=== PATIENT | female | born 1985 | race African-American/Black ===

== ENCOUNTER → 2016-10-03 | Outpatient (CLI) | payer OTHER ==
[~2016-10-03] MED LIST: CYCL1TAB29 PO; DICY10 PO; MOBI15TA PO; SLEEPING PILL; TRAM50TA PO; ULTR50TA5 PO
--- NOTE | 2016-10-03 12:39 | EKG ---
Date Performed: 10/03/2016 Time Performed: 10:42:09 PTAGE: 30 years EKG: Sinus rhythm NORMAL ECG Compared to prior tracing no significant change PREVIOUS TRACING : 12/25/2010 18.41 DOCTOR: Jamal Landa Interpretating Date/Time 10/03/2016 12:35:27
== END ==
LOC: HECH 10:31
DX: Z71.3 Dietary counseling and surveillance (principal)
CPT/HCPCS: 93005

== ENCOUNTER 2017-01-04 00:18 | Emergency (ER) | payer OTHER ==
[~2017-01-04] VITALS: Ht 165.1 cm; Wt 132.0 kg
[~2017-01-04 00:18] MED LIST changes: -DICY10 PO; -SLEEPING PILL; -TRAM50TA PO
[2017-01-04 00:21] VITALS: BP 135/70; PULSE 102; RESP 16; TEMP 98; O2SAT 98
[2017-01-04] MEDS ORDERED: SLEEPING PILL (00:26)
[2017-01-04] MEDS ORDERED: TRAM50TA PO (00:26)
--- NOTE | 2017-01-04 01:59 | PD ---
HPI Chief Complaint: Abdominal Pain Time Seen by Provider: 01:36 Travel History International Travel<30 days: No Contact w/Intl Traveler<30days: No Traveled to known affect area: No History of Present Illness HPI The patient is a 31-year-old after Citizen Of The [place] female who presents emergency department for abdominal pain. Patient is a 24 hour history of intermittent left lower quadrant crampy abdominal pain that is nonradiating. The patient has been urinating frequently, however, states she's been drinking significant amount of water. She has had a history of similar symptoms in past secondary to UTI. The patient denies any vaginal discharge or bleeding. Patient is sexually active, one partner, denies any history of STI. The patient's last menstrual cycle was 2 weeks ago, she denies . The patient denies any associated nausea, vomiting, constipation, or change in bowel habits. She denies any associated fever, chills, or sweats. PFSH Past Medical History Anemia: Yes Diminished Hearing: No Gastrointestinal Disorders: Yes Headaches: Yes Musculoskeletal: Yes (CHRONIC BACK PAIN) Immunizations Current: Yes Migraines: Yes Tetanus Vaccination: Never Vaccinated Influenza Vaccination: No ?: Unknown LMP: 2 WEEKS AGO : 0 Para: 0 Miscarriage: 0 : 0 Past Surgical History Surgical History: No Previous Surgery Social History Alcohol Use: Yes Tobacco Use: No Substance Use: No Allergies-Medications (Allergen,Severity, Reaction): Coded Allergies: No Known Allergies (Verified , 01/04/17) Reported Meds & Prescriptions Reported Meds & Active Scripts Active Reported [Sleeping Pill] Tramadol (Tramadol HCl) 50 Mg Tab 50 Mg PO Q4H PRN Review of Systems Except as stated in HPI: all other systems reviewed are Neg General / Constitutional: No: Fever HENT: No: Lightheadedness Cardiovascular: No: Chest Pain or Discomfort Respiratory: No: Shortness of Breath Gastrointestinal: Positive: Abdominal Pain, No: Nausea, Vomiting, Diarrhea Genitourinary: Positive: Frequency, Pelvic Pain, No: Urgency, Dysuria, Hematuria, Discharge, Vaginal Bleeding Physical Exam Narrative GENERAL: Awake, alert, pleasant 31-year-old female who appears her stated age and is in no acute respiratory distress. SKIN: Focused skin assessment warm/dry. HEAD: Atraumatic. Normocephalic. EYES: No injection or drainage. ENT: No nasal bleeding or discharge. Mucous membranes pink and moist. NECK: Trachea midline. No JVD. CARDIOVASCULAR: Regular rate and rhythm. No murmur appreciated. RESPIRATORY: No accessory muscle use. Clear to auscultation. Breath sounds equal bilaterally. GASTROINTESTINAL: Abdomen soft, obese, minimal tenderness in the suprapubic and left lower quadrant. No rebound tenderness, guarding, or rigidity. MUSCULOSKELETAL: No obvious deformities. No clubbing. No cyanosis. No edema. NEUROLOGICAL: Awake and alert. No obvious cranial nerve deficits. Motor grossly within normal limits. Normal speech. PSYCHIATRIC: Appropriate mood and affect; insight and judgment normal. Data Data Last Documented VS Vital Signs Date Time Temp Pulse Resp B/P Pulse Ox O2 Delivery O2 Flow Rate FiO2 01/04/17 02:00 16 99 Room Air 01/04/17 00:21 98.0 102 135/70 Orders Complete Blood Count With Diff (01/04/17 01:53) Comprehensive Metabolic Panel (01/04/17 01:53) Lipase (01/04/17 01:53) Urinalysis - C+S If Indicated (01/04/17 01:53) Iv Access Insert/Monitor (01/04/17 01:53) Ecg Monitoring (01/04/17 01:53) Oximetry (01/04/17 01:53) Sodium Chloride 0.9% Flush (Ns Flush) (01/04/17 02:00) Ed Urine Pregnancytest Poc (01/04/17 01:53) Ct Abd/Pel W/O Iv Contrast (01/04/17 ) Labs Laboratory Tests Test 01/04/17 01/04/17 01:50 02:00 Urine Color YELLOW Urine Turbidity CLEAR Urine pH 6.5 Urine Specific [place] 1.026 Urine Protein TRACE mg/dL Urine Glucose (UA) NEG mg/dL Urine Ketones NEG mg/dL Urine Occult Blood NEG Urine Nitrite NEG Urine Bilirubin NEG Urine Urobilinogen 2.0 MG/DL Urine Leukocyte Esterase SMALL Urine RBC LESS THAN 1 /hpf Urine WBC 2 /hpf Urine Squamous Epithelial 3 /hpf Cells Urine Transitional Epithelial <1 /hpf Cells Urine Renal Epithelial Cells <1 /hpf Urine Bacteria RARE /hpf Urine Mucus MANY /lpf Microscopic Urinalysis Comment CULT NOT INDICATED White Blood Count 11.5 TH/MM3 Red Blood Count 4.22 MIL/MM3 Hemoglobin 9.8 GM/DL Hematocrit 32.3 % Mean Corpuscular Volume 76.5 FL Mean Corpuscular Hemoglobin 23.2 PG Mean Corpuscular Hemoglobin 30.3 % Concent Red Cell Distribution Width 16.5 % Platelet Count 357 TH/MM3 Mean Platelet Volume 7.4 FL Neutrophils (%) (Auto) 60.4 % Lymphocytes (%) (Auto) 31.8 % Monocytes (%) (Auto) 6.2 % Eosinophils (%) (Auto) 1.0 % Basophils (%) (Auto) 0.6 % Neutrophils # (Auto) 6.9 TH/MM3 Lymphocytes # (Auto) 3.7 TH/MM3 Monocytes # (Auto) 0.7 TH/MM3 Eosinophils # (Auto) 0.1 TH/MM3 Basophils # (Auto) 0.1 TH/MM3 CBC Comment DIFF FINAL Differential Comment Sodium Level 141 MEQ/L Potassium Level 3.7 MEQ/L Chloride Level 104 MEQ/L Carbon Dioxide Level 30.5 MEQ/L Anion Gap 7 MEQ/L Blood Urea Nitrogen 9 MG/DL Creatinine 0.66 MG/DL Estimat Glomerular Filtration 126 ML/MIN Rate Random Glucose 83 MG/DL Calcium Level 8.6 MG/DL Total Bilirubin 0.1 MG/DL Aspartate Amino Transf 17 U/L (AST/SGOT) Alanine Aminotransferase 23 U/L (ALT/SGPT) Alkaline Phosphatase 80 U/L Total Protein 8.0 GM/DL Albumin 3.5 GM/DL Lipase 85 U/L [facility] Medical Decision Making Medical Screen Exam Complete: Yes Emergency Medical Condition: Yes Medical Record Reviewed: Yes Interpretation(s) CT of the abdomen and pelvis reveals no acute CT findings. Laboratory Tests Test 01/04/17 01/04/17 01:50 02:00 Urine Color YELLOW Urine Turbidity CLEAR Urine pH 6.5 Urine Specific [place] 1.026 Urine Protein TRACE mg/dL Urine Glucose (UA) NEG mg/dL Urine Ketones NEG mg/dL Urine Occult Blood NEG Urine Nitrite NEG Urine Bilirubin NEG Urine Urobilinogen 2.0 MG/DL Urine Leukocyte Esterase SMALL Urine RBC LESS THAN 1 /hpf Urine WBC 2 /hpf Urine Squamous Epithelial 3 /hpf Cells Urine Transitional Epithelial <1 /hpf Cells Urine Renal Epithelial Cells <1 /hpf Urine Bacteria RARE /hpf Urine Mucus MANY /lpf Microscopic Urinalysis Comment CULT NOT INDICATED White Blood Count 11.5 TH/MM3 Red Blood Count 4.22 MIL/MM3 Hemoglobin 9.8 GM/DL Hematocrit 32.3 % Mean Corpuscular Volume 76.5 FL Mean Corpuscular Hemoglobin 23.2 PG Mean Corpuscular Hemoglobin 30.3 % Concent Red Cell Distribution Width 16.5 % Platelet Count 357 TH/MM3 Mean Platelet Volume 7.4 FL Neutrophils (%) (Auto) 60.4 % Lymphocytes (%) (Auto) 31.8 % Monocytes (%) (Auto) 6.2 % Eosinophils (%) (Auto) 1.0 % Basophils (%) (Auto) 0.6 % Neutrophils # (Auto) 6.9 TH/MM3 Lymphocytes # (Auto) 3.7 TH/MM3 Monocytes # (Auto) 0.7 TH/MM3 Eosinophils # (Auto) 0.1 TH/MM3 Basophils # (Auto) 0.1 TH/MM3 CBC Comment DIFF FINAL Differential Comment Sodium Level 141 MEQ/L Potassium Level 3.7 MEQ/L Chloride Level 104 MEQ/L Carbon Dioxide Level 30.5 MEQ/L Anion Gap 7 MEQ/L Blood Urea Nitrogen 9 MG/DL Creatinine 0.66 MG/DL Estimat Glomerular Filtration 126 ML/MIN Rate Random Glucose 83 MG/DL Calcium Level 8.6 MG/DL Total Bilirubin 0.1 MG/DL Aspartate Amino Transf 17 U/L (AST/SGOT) Alanine Aminotransferase 23 U/L (ALT/SGPT) Alkaline Phosphatase 80 U/L Total Protein 8.0 GM/DL Albumin 3.5 GM/DL Lipase 85 U/L Differential Diagnosis Differential diagnosis includes UTI, ovarian cyst, ovarian torsion, nephrolithiasis, pyelonephritis, diverticulitis, cervicitis, PID, ectopic . Narrative Course IV was established, labs are drawn and sent, and the patient was placed on cardiac telemetry monitoring and continuous pulse oximetry monitoring. Bedside UA test was obtained, negative, and UA was sent to lab. The patient' s white count was minimally elevated greater than 11, LFTs and lipase are unremarkable. UA is negative. Patient's initial heart rate was 102, with elevated white count, therefore, CT the abdomen and pelvis was performed. CT was negative. Patient will be discharged home on Bentyl, is advised to follow- up with her primary physician, diet as tolerated, and return if symptoms worsen or progress. Diagnosis Primary Impression: Abdominal pain Qualified Code: R10.32 - Left lower quadrant pain Patient Instructions: General Instructions Additional Instructions: Bentyl as needed. Diet as tolerated. Follow-up with your primary physician. Please provide the patient a copy of her CT results and lab results at discharge. Med/Other Pt SpecificInfo: Prescription(s) given Scripts Dicyclomine (Bentyl)10 Mg Cap10 Mg PO QID #20 CAP Ref 0 Prov:Elton Snowden MD 01/04/17 Disposition: 01 DISCHARGE HOME Condition: Stable Elton Snowden MD January 04, 2017 01:58
[2017-01-04 02:00] VITALS: RESP 16; O2SAT 99
[2017-01-04] MEDS ORDERED: SODIUM CHLORIDE 0.9% FLUSH 10 ML FLUSH IV FLUSH PRN (02:00)
[2017-01-04 02:11] LABS: BACTERIA, URINE RARE /hpf; BLOOD, URINE NEG (NEG); COMMENT (UR) CULT NOT INDICATED; CULTURE IF INDICATED CULT NOT INDICATED; GLUCOSE,URINE NEG (NEG); KETONE, URINE NEG (NEG); MUCUS URINE MANY /lpf (OCC); NITRITE,URINE NEG (NEG); PH, URINE 6.5 (5.0-8.5); RENAL EPITHELIAL CELLS <1 /hpf; SQUAMOUS EPITHELIAL CELL URINE 3 /hpf (0-5); TRANSITIONAL EPI CELLS, URINE <1 /hpf; URINE COLOR YELLOW (YELLW/STRAW)
[2017-01-04 02:16] LABS: AUTOMATED NEUTROPHIL # 6.9 TH/MM3 (1.8-7.7); BASOPHIL # 0.1 TH/MM3 (0-0.2); BASOPHIL % 0.6 % (0.0-2.0); EOSINOPHIL # 0.1 TH/MM3 (0-0.4); HEMATOCRIT 32.3 % (35.0-46.0); HEMO FLAGS DIFF FINAL; LYMPH % 31.8 % (9.0-44.0); LYMPHOCYTE # 3.7 TH/MM3 (1.0-4.8); MEAN CELL VOLUME 76.5 FL (80.0-100.0); MEAN CORPUSCULAR HEMOGLOBIN 23.2 PG (27.0-34.0); MEAN CORPUSCULAR HGB CONC 30.3 % (32.0-36.0); MONO % 6.2 % (0.0-8.0); NEUT % 60.4 % (16.0-70.0); PLATELET COUNT 357 TH/MM3 (150-450); RED BLOOD COUNT 4.22 MIL/MM3 (4.00-5.30); RED CELL DISTRIBUTION WIDTH 16.5 % (11.6-17.2); WHITE BLOOD COUNT 11.5 TH/MM3 (4.0-11.0)
[2017-01-04 02:29] LABS: ALT (GPT) 23 U/L (10-53); ANION GAP 7 MEQ/L (5-15); AST (GOT) 17 U/L (15-37); BICARBONATE 30.5 MEQ/L (21.0-32.0); BLOOD UREA NITROGEN 9 MG/DL (7-18); CHLORIDE 104 MEQ/L (98-107); GLOMERULAR FILTRATION RATE 126 ML/MIN (>89); POTASSIUM 3.7 MEQ/L (3.5-5.1); SODIUM (NA) 141 MEQ/L (136-145)
[2017-01-04 02:31] LABS: ALKALINE PHOSPHATASE 80 U/L (45-117); TOTAL BILIRUBIN ADULT 0.1 MG/DL (0.2-1.0)
[2017-01-04] MEDS ORDERED: DICY10 PO (03:31)
--- NOTE | 2017-01-04 08:26 | RADRPT ---
EXAM DATE/TIME: 01/04/2017 03:02 [facility] COMPARISON: No previous studies available for comparison. INDICATIONS : Left lower quadrant pain. ORAL CONTRAST: No oral contrast ingested. RADIATION DOSE: 16.99 CTDIvol (mGy) MEDICAL HISTORY : None SURGICAL HISTORY : None. ENCOUNTER: Initial ACUITY: 1 day PAIN SCALE: 5/10 LOCATION: Left lower quadrant TECHNIQUE: Volumetric scanning of the abdomen and pelvis was performed. Using automated exposure control and ad justment of the mA and/or kV according to patient size, radiation dose was kept as low as reasonably achievable to obtain optimal diagnostic quality images. FINDINGS: LOWER LUNGS: The visualized lower lungs are clear. LIVER: Homogeneous density without lesion. There is no dilation of the biliary tree. No calcified gallston es. SPLEEN: Normal size without lesion. PANCREAS: Within normal limits. KIDNEYS: Normal in size and shape. There is no mass, stone, or hydronephrosis. ADRENAL GLANDS: Within normal limits. VASCULAR: There is no aortic aneurysm. BOWEL/MESENTERY: The stomach, small bowel, and colon demonstrate no acute abnormality. There is no free intraperitone al air or fluid. ABDOMINAL WALL: Within normal limits. RETROPERITONEUM: There is no lymphadenopathy. BLADDER: No wall thickening or mass. REPRODUCTIVE: Within normal limits. INGUINAL: There is no lymphadenopathy or hernia. MUSCULOSKELETAL: Within normal limits for patient age. CONCLUSION: No acute CT findings in the abdomen or pelvis. Mani Franco MD on January 04, 2017 at 3:11 Board Certified Radiologist. This report was verified electronically.
== END 2017-01-04 04:20 | disposition home or self-care (01) ==
LOC: NEPC 00:18
DX: R10.32 Left lower quadrant pain (principal)
CPT/HCPCS: 74176; 80053; 81001; 83690; 84703; 85025

== ENCOUNTER 2017-06-15 15:46 | Emergency (ER) | payer OTHER ==
[~2017-06-15] VITALS: Ht 165.1 cm; Wt 132.0 kg
[~2017-06-15 15:46] MED LIST changes: -CYCL1TAB29 PO; +DICY10 PO; -MOBI15TA PO; +SLEEPING PILL; +TRAM50TA PO; -ULTR50TA5 PO
[2017-06-15 15:47] VITALS: BP 135/75; PULSE 87; RESP 12; TEMP 97.9; O2SAT 98
[2017-06-15] MEDS ORDERED: IBUPROFEN 800 MG TAB PO ONE (16:30)
[2017-06-15] MEDS ORDERED: ONDANSETRON ODT 4 MG TAB PO ONE (16:30)
--- NOTE | 2017-06-15 18:47 | PD ---
HPI Chief Complaint: Abdominal Pain Time Seen by Provider: 18:43 Travel History International Travel<30 days: No Contact w/Intl Traveler<30days: No History of Present Illness HPI 31-year-old female presents to the ED for evaluation of 2 day history of crampy , 10 out of 10 lower abdominal pain. She states the pain radiates to her back and buttocks. Patient states this pain is similar to previous episodes of dysmenorrhea. She endorses mild nausea. She denies fevers, chills, vomiting, changes in bowel habits, dysuria, vaginal discharge. She denies risk of . She states that she takes oral contraception in order to control her symptoms "but I think my body got used to it because I'm really hurting today." She states that she treated with 400 mg ibuprofen ~1 PM with no improvement of symptoms. PFSH Past Medical History Anemia: Yes Diminished Hearing: No Gastrointestinal Disorders: Yes Headaches: Yes Musculoskeletal: Yes (CHRONIC BACK PAIN) Immunizations Current: Yes Migraines: Yes LMP: now : 0 Para: 0 Miscarriage: 0 : 0 Social History Alcohol Use: Yes Tobacco Use: No Substance Use: No Allergies-Medications (Allergen,Severity, Reaction): Coded Allergies: No Known Allergies (Verified , 01/04/17) Reported Meds & Prescriptions Reported Meds & Active Scripts Active Ibuprofen 800 Mg Tab 800 Mg PO Q8H PRN Reported Miralax Powder (Polyethylene Glycol 3350 Powder) 17 Gm Powd 17 Gm PO DAILY PRN Mix and dissolve one measuring cap-ful (17 grams) in water or juice. [Sleeping Pill] Tramadol (Tramadol HCl) 50 Mg Tab 50 Mg PO Q4H PRN Review of Systems Except as stated in HPI: all other systems reviewed are Neg Physical Exam Narrative GENERAL: Obese black female in no acute distress. SKIN: Focused skin assessment warm/dry. HEAD: Normocephalic. EYES: No scleral icterus. No injection or drainage. NECK: Supple, trachea midline. No JVD or lymphadenopathy. CARDIOVASCULAR: Regular rate and rhythm without murmurs, gallops, or rubs. RESPIRATORY: Breath sounds equal bilaterally. No accessory muscle use. GASTROINTESTINAL: Abdomen protuberant, soft, non-tender, nondistended. Active bowel sounds. MUSCULOSKELETAL: No cyanosis, or edema. BACK: Nontender without obvious deformity. No CVA tenderness. Data Data Last Documented VS Vital Signs Date Time Temp Pulse Resp B/P (MAP) Pulse Ox O2 Delivery O2 Flow Rate FiO2 06/15/17 21:11 80 16 130/75 (93) 98 06/15/17 15:47 97.9 Orders Orders Ibuprofen (Motrin) (06/15/17 16:30) Ondansetron Odt (Zofran Odt) (06/15/17 16:30) Urinalysis - C+S If Indicated (06/15/17 18:35) Ed Urine Pregnancytest Poc (06/15/17 18:35) Acetamin-Hydrocod 325-5 Mg ([place] 5-325 (06/15/17 21:00) Ed Discharge Order (06/15/17 21:03) Labs Laboratory Tests Test 06/15/17 19:40 Urine Color YELLOW Urine Turbidity CLEAR Urine pH 6.5 Urine Specific [place] 1.029 Urine Protein 30 mg/dL Urine Glucose (UA) NEG mg/dL Urine Ketones NEG mg/dL Urine Occult Blood MOD Urine Nitrite NEG Urine Bilirubin NEG Urine Urobilinogen LESS THAN 2.0 MG/DL Urine Leukocyte Esterase NEG Urine RBC /hpf Urine WBC 5 /hpf Urine Squamous Epithelial Cells 2 /hpf Urine Amorphous Sediment RARE Urine Mucus FEW /lpf Microscopic Urinalysis Comment CULT NOT INDICATED MDM Medical Decision Making Medical Screen Exam Complete: Yes Emergency Medical Condition: Yes Differential Diagnosis Dysmenorrhea versus UTI versus versus other Narrative Course 31-year-old female presents to the ED for evaluation of 2 day history of crampy , 10 out of 10 lower abdominal pain. She states the pain radiates to her back and buttocks. Patient states this pain is similar to previous episodes of dysmenorrhea. She endorses mild nausea. She denies fevers, chills, vomiting, changes in bowel habits, dysuria, vaginal discharge, risk of . She uses OC. Vitals reviewed. Physical exam reveals an obese black female in no acute distress. Abdominal exam unremarkable. No CVA tenderness. Patient was administered 800 mg ibuprofen by mouth and 4 mg Zofran sublingual. Urine test negative. No culture indicated of the UA. On recheck the patient states that her pain is only slightly diminished. She is administered 5 mg Lortab. She is instructed to treat symptomatically and follow up with her door closer mechanic. She is prescribed a short course of anti-inflammatory medications. She indicated understanding of instructions and is agreeable to the care plan. She is stable and discharged home. Diagnosis Primary Impression: Crampy pain associated with menses Referrals: Car Audio Installer Patient Instructions: Dysmenorrhea (ED), General Instructions Additional Instructions: Rest, hydrate. Return to normal, gentle activity as tolerated. Warm compresses held over the lower abdomen may help to improve your symptoms. Take pain medications as prescribed. Follow-up with your door closer mechanic. Return to the ED for any urgent or emergent medical condition. Med/Other Pt SpecificInfo: Prescription(s) given Scripts Ibuprofen (Ibuprofen) 800 Mg Tab 800 MG PO Q8H Y for Pain/Inflammation, #15 TAB 0 Refills Prov: Carlos Sidhu MD 06/15/17 Disposition: 01 DISCHARGE HOME Condition: Stable Danya Chang Jun 15, 2017 18:47
[2017-06-15] MEDS ORDERED: MIRA3350 PO (19:27)
[2017-06-15 20:54] LABS: BLOOD, URINE MOD (NEG); COMMENT (UR) CULT NOT INDICATED; CULTURE IF INDICATED CULT NOT INDICATED; GLUCOSE,URINE NEG (NEG); KETONE, URINE NEG (NEG); MUCUS URINE FEW /lpf (OCC); NITRITE,URINE NEG (NEG); PH, URINE 6.5 (5.0-8.5); SQUAMOUS EPITHELIAL CELL URINE 2 /hpf (0-5); URINE COLOR YELLOW (YELLW/STRAW)
[2017-06-15] MEDS ORDERED: ACETAMINOPHEN/HYDROcodone 325 MG/5 MG TAB PO ONE (21:00)
[2017-06-15] MEDS ORDERED: IBUP1TAB7 PO (21:03)
[2017-06-15 21:11] VITALS: BP 130/75
== END 2017-06-15 21:14 | disposition home or self-care (01) ==
LOC: NEPC 15:46
DX: N94.6 Dysmenorrhea, unspecified (principal)
CPT/HCPCS: 81001; 84703; 99283

== ENCOUNTER 2017-08-03 14:15 | Emergency (ER) | payer OTHER ==
[~2017-08-03 14:15] MED LIST changes: -DICY10 PO; +IBUP1TAB7 PO; +MIRA3350 PO
[2017-08-03 14:17] VITALS: BP 134/81; PULSE 80; RESP 14; TEMP 98.7; O2SAT 99
[2017-08-03 15:32] LABS: AUTOMATED NEUTROPHIL # 6.9 TH/MM3 (1.8-7.7); BASOPHIL # 0.1 TH/MM3 (0-0.2); BASOPHIL % 0.8 % (0.0-2.0); EOSINOPHIL # 0.1 TH/MM3 (0-0.4); EOSINOPHIL % 0.7 % (0.0-4.0); HEMATOCRIT 32.5 % (35.0-46.0); LYMPH % 20.3 % (9.0-44.0); LYMPHOCYTE # 1.9 TH/MM3 (1.0-4.8); MEAN CELL VOLUME 73.2 FL (80.0-100.0); MEAN CORPUSCULAR HEMOGLOBIN 22.5 PG (27.0-34.0); MEAN CORPUSCULAR HGB CONC 30.7 % (32.0-36.0); MEAN PLATELET VOLUME 7.6 FL (7.0-11.0); MONO % 5.7 % (0.0-8.0); MONOCYTE # 0.5 TH/MM3 (0-0.9); NEUT % 72.5 % (16.0-70.0); PLATELET COUNT 423 TH/MM3 (150-450); RED BLOOD COUNT 4.45 MIL/MM3 (4.00-5.30); RED CELL DISTRIBUTION WIDTH 17.8 % (11.6-17.2); WHITE BLOOD COUNT 9.5 TH/MM3 (4.0-11.0)
[2017-08-03 15:53] LABS: ALBUMIN 3.3 GM/DL (3.4-5.0); AST (GOT) 16 U/L (15-37); BICARBONATE 22.4 MEQ/L (21.0-32.0); BLOOD UREA NITROGEN 6 MG/DL (7-18); CALCIUM 9.2 MG/DL (8.5-10.1); CHLORIDE 108 MEQ/L (98-107); CREATININE 0.65 MG/DL (0.50-1.00); GLOMERULAR FILTRATION RATE 128 ML/MIN (>89); GLUCOSE,RANDOM 106 MG/DL (74-106); MAGNESIUM 2.2 MG/DL (1.5-2.5); SODIUM (NA) 141 MEQ/L (136-145)
[2017-08-03 15:57] LABS: ALKALINE PHOSPHATASE 62 U/L (45-117); ALT (GPT) 16 U/L (10-53); TOTAL BILIRUBIN ADULT 0.1 MG/DL (0.2-1.0); TOTAL PROTEIN 8.4 GM/DL (6.4-8.2)
--- NOTE | 2017-08-03 15:57 | RADRPT ---
EXAM DATE/TIME: 08/03/2017 15:44 [facility] COMPARISON: No previous studies available for comparison. INDICATIONS : Dizziness and headache for one day. RADIATION DOSE: 30.94 CTDIvol (mGy) MEDICAL HISTORY : Non-responsive. Migraines, Anemia, Chronic back pain. SURGICAL HISTORY : None. ENCOUNTER: Initial ACUITY: 1 day PAIN SCALE: 4/10 LOCATION: Bilateral cranial TECHNIQUE: Multiple contiguous axial images were obtained of the head. Using automated exposure control and adj ustment of the mA and/or kV according to patient size, radiation dose was kept as low as reasonably a chievable to obtain optimal diagnostic quality images. DICOM format image data is available electro nically for review and comparison. FINDINGS: CEREBRUM: The ventricles are normal for age. No evidence of midline shift, mass lesion, hemorrhage or acute in farction. No extra-axial fluid collections are seen. POSTERIOR FOSSA: The cerebellum and brainstem are intact. The 4th ventricle is midline. The cerebellopontine angle i s unremarkable. EXTRACRANIAL: The visualized portion of the orbits is intact. SKULL: The calvaria is intact. No evidence of skull fracture. CONCLUSION: Normal examination for a patient of this age. Adonay Gonzalez MD on August 03, 2017 at 15:55 Board Certified Radiologist. This report was verified electronically.
--- NOTE | 2017-08-03 16:05 | PD ---
HPI Chief Complaint: Dizziness Time Seen by Provider: 16:05 Travel History International Travel<30 days: No Contact w/Intl Traveler<30days: No Traveled to known affect area: No History of Present Illness HPI 31-year-old female came to the emergency room for sudden onset dizziness since 1 PM today. Patient specifically describes the dizziness as a feeling of lightheadedness. She felt like she was going to pass out but didn't quite pass out. She was on her way to work but then decided to come to the emergency room. Patient says that she has history of migraine but this time there is no headache. No history of nausea vomiting. Upon asking she said there was no chance she could be since she has not had sex in a very long time. Vital signs are stable. Patient says that she has medical condition and takes medications but does not remember their names. She had blood test and CT scan done in triage that was completed by the time she came into the ER. PFSH Past Medical History Narrative Medical List of her past medical, surgical, social and family history is reviewed from the nursing note. Anemia: Yes Diminished Hearing: No Gastrointestinal Disorders: Yes Headaches: Yes Musculoskeletal: Yes (CHRONIC BACK PAIN) Immunizations Current: Yes Migraines: Yes ?: Not LMP: 07/13/17 : 0 Para: 0 Miscarriage: 0 : 0 Social History Alcohol Use: No Tobacco Use: No Substance Use: No Allergies-Medications (Allergen,Severity, Reaction): Coded Allergies: No Known Allergies (Verified Adverse Reaction, Unknown, 08/03/17) Comments No known drug allergies. Reported Meds & Prescriptions Reported Meds & Active Scripts Active Meclizine (Meclizine HCl) 25 Mg Tab 25 Mg PO TID PRN Ibuprofen 800 Mg Tab 800 Mg PO Q8H PRN Reported Miralax Powder (Polyethylene Glycol 3350 Powder) 17 Gm Powd 17 Gm PO DAILY PRN Mix and dissolve one measuring cap-ful (17 grams) in water or juice. [Sleeping Pill] Tramadol (Tramadol HCl) 50 Mg Tab 50 Mg PO Q4H PRN Narrative Medication List of her home medications reviewed from the nursing note. Review of Systems Except as stated in HPI: all other systems reviewed are Neg Physical Exam Narrative GENERAL: Awake, alert, morbidly obese, no obvious distress SKIN: Focused skin assessment warm/dry. HEAD: Atraumatic. Normocephalic. EYES: Pupils equal and round. No scleral icterus. No injection or drainage. ENT: No nasal bleeding or discharge. Mucous membranes pink and moist. NECK: Trachea midline. No JVD. CARDIOVASCULAR: Regular rate and rhythm. No murmur appreciated. RESPIRATORY: No accessory muscle use. Clear to auscultation. Breath sounds equal bilaterally. GASTROINTESTINAL: Abdomen soft, non-tender, nondistended. Hepatic and splenic margins not palpable. MUSCULOSKELETAL: No obvious deformities. No clubbing. No cyanosis. No edema. NEUROLOGICAL: Awake and alert. No obvious cranial nerve deficits. Motor grossly within normal limits. Normal speech. PSYCHIATRIC: Appropriate mood and affect; insight and judgment normal. Data Data Last Documented VS Vital Signs Date Time Temp Pulse Resp B/P (MAP) Pulse Ox O2 Delivery O2 Flow Rate FiO2 08/03/17 17:37 78 18 123/74 (90) 98 08/03/17 14:17 98.7 Orders Orders Complete Blood Count With Diff (08/03/17 14:49) Comprehensive Metabolic Panel (08/03/17 14:49) Magnesium (Mg) (08/03/17 14:49) Ct Brain W/O Iv Contrast(Rout) (08/03/17 14:49) Electrocardiogram (08/03/17 ) Orthostatic Vital Signs (08/03/17 16:14) Meclizine (Antivert) (08/03/17 16:15) Ed Discharge Order (08/03/17 17:12) Labs Laboratory Tests Test 08/03/17 15:15 White Blood Count 9.5 TH/MM3 Red Blood Count 4.45 MIL/MM3 Hemoglobin 10.0 GM/DL Hematocrit 32.5 % Mean Corpuscular Volume 73.2 FL Mean Corpuscular Hemoglobin 22.5 PG Mean Corpuscular Hemoglobin Concent 30.7 % Red Cell Distribution Width 17.8 % Platelet Count 423 TH/MM3 Mean Platelet Volume 7.6 FL Neutrophils (%) (Auto) 72.5 % Lymphocytes (%) (Auto) 20.3 % Monocytes (%) (Auto) 5.7 % Eosinophils (%) (Auto) 0.7 % Basophils (%) (Auto) 0.8 % Neutrophils # (Auto) 6.9 TH/MM3 Lymphocytes # (Auto) 1.9 TH/MM3 Monocytes # (Auto) 0.5 TH/MM3 Eosinophils # (Auto) 0.1 TH/MM3 Basophils # (Auto) 0.1 TH/MM3 CBC Comment DIFF FINAL Differential Comment Blood Urea Nitrogen 6 MG/DL Creatinine 0.65 MG/DL Random Glucose 106 MG/DL Total Protein 8.4 GM/DL Albumin 3.3 GM/DL Calcium Level 9.2 MG/DL Magnesium Level 2.2 MG/DL Alkaline Phosphatase 62 U/L Aspartate Amino Transf (AST/SGOT) 16 U/L Alanine Aminotransferase (ALT/SGPT) 16 U/L Total Bilirubin 0.1 MG/DL Sodium Level 141 MEQ/L Potassium Level 3.8 MEQ/L Chloride Level 108 MEQ/L Carbon Dioxide Level 22.4 MEQ/L Anion Gap 11 MEQ/L Estimat Glomerular Filtration Rate 128 ML/MIN [facility] Medical Decision Making Medical Screen Exam Complete: Yes Emergency Medical Condition: Yes Medical Record Reviewed: Yes Interpretation(s) Twelve-lead EKG was reviewed by me. Normal sinus rhythm, normal axis, nonspecific ST-T wave changes. Heart rate of 68 bpm. Differential Diagnosis Dehydration, medication side effect Narrative Course 5:19 PM orthostatic vital signs were done which was negative for orthostatic hypotension. Patient was given a dose of meclizine and I'll discharge her home. All the test results are within normal limit. Procedures EKG Prior to Arrival: No Diagnosis Primary Impression: Dizziness Referrals: Primary Care Physician 2 days Additional Instructions: Please return to the ER if the condition worsens or any other new concerns. You should not be driving until the dizziness persists. Take the medication as per the prescription direction. Follow-up with her primary care. Med/Other Pt SpecificInfo: Prescription(s) given Scripts Meclizine (Meclizine) 25 Mg Tab 25 MG PO TID Y for VERTIGO, #15 TAB 0 Refills Prov: Robinson Joyce MD 08/03/17 Disposition: 01 DISCHARGE HOME Condition: Stable Robinson Joyce MD Aug 03, 2017 16:05
[2017-08-03] MEDS ORDERED: MECLIZINE HCL 25 MG TAB PO ONE (16:15)
[2017-08-03 16:37] VITALS: BP_SYST 108; BP_SYST 123; BP_DIAS 55; BP_DIAS 72; RESP 18
[2017-08-03] MEDS ORDERED: MECL-62 PO (17:14)
[2017-08-03 17:37] VITALS: BP 123/74
--- NOTE | 2017-08-04 14:49 | EKG ---
Date Performed: 08/03/2017 Time Performed: 16:32:58 PTAGE: 31 years EKG: Sinus rhythm POSSIBLE RIGHT VENTRICULAR CONDUCTION DELAY Since previous tracing, no significant change noted NATHEN TANIA ECG PREVIOUS TRACING : 10/03/2016 10.42 DOCTOR: Nelson Matute Interpretating Date/Time 08/04/2017 14:47:27
== END 2017-08-03 17:37 | disposition home or self-care (01) ==
LOC: NEPD 14:15
DX: R42 Dizziness and giddiness (principal); G89.29 Other chronic pain; Z79.899 Other long term (current) drug therapy
CPT/HCPCS: 70450; 80053; 83735; 85025; 93005; 99285

== ENCOUNTER 2017-09-24 20:27 | Emergency (ER) | payer OTHER ==
[~2017-09-24] VITALS: Ht 165.1 cm; Wt 130.0 kg
[~2017-09-24 20:27] MED LIST changes: +MECL-62 PO
[2017-09-24 20:31] VITALS: BP 142/62; PULSE 85; RESP 16; TEMP 99.1; O2SAT 100
[2017-09-24] MEDS ORDERED: ZITHTAB PO (21:17)
--- NOTE | 2017-09-24 21:17 | PD ---
HPI Chief Complaint: Abdominal Pain Time Seen by Provider: 21:00 Travel History International Travel<30 days: No Contact w/Intl Traveler<30days: No Traveled to known affect area: No History of Present Illness HPI 31-year-old female complains of persistent cough and left low quadrant abdominal pain. Patient states that the cough started about 2 weeks ago. Patient was seen by local physician and given prescription for amoxicillin. Patient states that she took amoxicillin without relief of the cough. Patient states the cough is persistent and dry cough. Patient denies any chest pain or shortness of breath. Patient denies any fever chills. Patient states that she started having intermittent sharp pain left low quadrant of the abdomen and pelvic area. Patient denies any pain radiation. Patient denies any dysuria or frequency. Patient denies any vaginal discharge or bleeding. Patient denies any chance of being . Patient has history of recurrent left low quadrant abdominal pelvic pain in the past. Patient was seen in emergency room and had without CT abdomen and pelvis and blood tests were normal. Patient was seen by machine builder without clear etiology of the left abdominal pelvic pain. PFSH Past Medical History Anemia: Yes Diminished Hearing: No Gastrointestinal Disorders: Yes Headaches: Yes Musculoskeletal: Yes (CHRONIC BACK PAIN) Immunizations Current: Yes Migraines: Yes Tetanus Vaccination: < 5 Years Influenza Vaccination: No ?: Unknown LMP: 09/17/2017 : 0 Para: 0 Miscarriage: 0 : 0 Past Surgical History Surgical History: No Previous Surgery Social History Alcohol Use: No Tobacco Use: No Substance Use: No Allergies-Medications (Allergen,Severity, Reaction): Coded Allergies: No Known Allergies (Verified Adverse Reaction, Unknown, 09/24/17) Reported Meds & Prescriptions Reported Meds & Active Scripts Active Meclizine (Meclizine HCl) 25 Mg Tab 25 Mg PO TID PRN Ibuprofen 800 Mg Tab 800 Mg PO Q8H PRN Reported Miralax Powder (Polyethylene Glycol 3350 Powder) 17 Gm Powd 17 Gm PO DAILY PRN Mix and dissolve one measuring cap-ful (17 grams) in water or juice. [Sleeping Pill] Tramadol (Tramadol HCl) 50 Mg Tab 50 Mg PO Q4H PRN Review of Systems General / Constitutional: No: Fever Eyes: No: Visual changes HENT: No: Headaches Cardiovascular: No: Chest Pain or Discomfort Respiratory: Positive: Cough, No: Shortness of Breath Gastrointestinal: Positive: Abdominal Pain Genitourinary: No: Dysuria Musculoskeletal: No: Pain Skin: No Rash Neurologic: No: Weakness Psychiatric: No: Depression Endocrine: No: Polydipsia Hematologic/Lymphatic: No: Easy Bruising Physical Exam Narrative GENERAL: Well-nourished, well-developed patient. SKIN: Focused skin assessment warm/dry. HEAD: Normocephalic. EYES: No scleral icterus. No injection or drainage. NECK: Supple, trachea midline. No JVD or lymphadenopathy. CARDIOVASCULAR: Regular rate and rhythm without murmurs, gallops, or rubs. RESPIRATORY: Breath sounds equal bilaterally. No accessory muscle use. No stridor or wheezes. No rhonchi. GASTROINTESTINAL: Abdomen soft, nondistended. Patient has mild tenderness on palpation left lower quadrant of the abdomen. No rebound tenderness. No mass. MUSCULOSKELETAL: No cyanosis, or edema. BACK: Nontender without obvious deformity. No CVA tenderness. Data Data Last Documented VS Vital Signs Date Time Temp Pulse Resp B/P (MAP) Pulse Ox O2 Delivery O2 Flow Rate FiO2 09/24/17 20:31 99.1 85 16 142/62 (88) 100 Room Air MDM Medical Decision Making Medical Screen Exam Complete: Yes Emergency Medical Condition: Yes Differential Diagnosis Differential diagnosis including URI, bronchitis, pneumonia, reactive airway disease, colitis, UTI, ON cyst, ovarian torsion, ectopic . Narrative Course 31-year-old female with persistent dry cough and intermittent left lower quadrant abdominal pain pelvic pain. Diagnosis Primary Impression: Abdominal pain Qualified Codes: R10.32 - Left lower quadrant pain Additional Impression: Bronchitis Patient Instructions: General Instructions Additional Instructions: Z-Prince as directed. Advil as needed for pain. Follow-up with machine builder. Return if worse. Med/Other Pt SpecificInfo: Prescription(s) given Scripts Azithromycin (Zithromax Z-Prince) 250 Mg Dspk 250 MG PO DIRECTED for Infection, #1 DSPK 0 Refills 500 MG (2 tabs) day 1, then 1 tab days 2-5. Prov: Leonides Walton MD 09/24/17 Disposition: 01 DISCHARGE HOME Condition: Stable Leonides Walton MD Sep 24, 2017 21:17
== END 2017-09-24 21:38 | disposition home or self-care (01) ==
LOC: NEPD 20:27
DX: R10.32 Left lower quadrant pain (principal); J40 Bronchitis, not specified as acute or chronic
CPT/HCPCS: 99283